=== PATIENT | male | born 1965 | race Caucasian/White ===

== ENCOUNTER 2022-02-12 16:15 | Emergency (ER) | payer MEDICARE, OTHER ==
[~2022-02-12] VITALS: Ht 170.2 cm; Wt 81.8 kg
[2022-02-12] MEDS ORDERED: CLOZ25TA6 PO (17:08)
[2022-02-12] MEDS ORDERED: BENZ0.5T23 PO (17:08)
[2022-02-12] MEDS ORDERED: PERP2TAB20 PO (17:08)
[2022-02-12] MEDS ORDERED: METF500S3 PO (17:08)
[2022-02-12 17:16] LABS: BASO # 0.1 10^3/uL (0.0-0.2); BASO % 0.5 % (0.0-1.0); EOS # 0.3 10^3/uL (0.0-0.5); EOS % 3.2 % (0.0-3.0); HEMATOCRIT 43.4 % (42.0-52.0); HEMOGLOBIN 14.8 g/dl (13.5-17.5); LYMPH # 1.4 10^3/uL (1.5-5.0); LYMPH % 15.3 % (24.0-44.0); MEAN CORPUSCULAR HEMOGLOBIN 32.1 pg (27.0-33.0); MEAN CORPUSCULAR HGB CONC 34.1 g/dl (32.0-36.5); MEAN CORPUSCULAR VOLUME 94.1 fl (80.0-96.0); MONO # 0.7 10^3/uL (0.0-0.8); MONO % 7.8 % (2.0-8.0); NEUTROPHILS # 6.7 10^3/uL (1.5-8.5); NEUTROPHILS % 72.7 % (36.0-66.0); PLATELET COUNT, AUTOMATED 211 10^3/uL (150-450); RED BLOOD COUNT 4.61 10^6/uL (4.30-6.10); WHITE BLOOD COUNT 9.3 10^3/uL (4.0-10.0)
[2022-02-12] MEDS ORDERED: DERMABOND TOPICAL SKIN ADHESIVE TOP ONE (17:20)
[2022-02-12 17:42] LABS: RSV AMPLIFICATION NEGATIVE (NEGATIVE)
[2022-02-12 17:45] LABS: INR 0.93; PROTHROMBIN TIME 12.7 SECONDS (12.5-14.5)
[2022-02-12 17:49] LABS: BLOOD UREA NITROGEN 15 MG/DL (7-18); CALCIUM LEVEL 8.5 MG/DL (8.5-10.1); CARBON DIOXIDE LEVEL 19 MEQ/L (21-32); CHLORIDE LEVEL 106 MEQ/L (98-107); CREATININE FOR GFR 1.13 MG/DL (0.70-1.30); ETHYL ALCOHOL (ETHANOL) 0.245 % (0.000-0.010); GLOMERULAR FILTRATION RATE > 60.0 (>56); GLUCOSE, FASTING 110 MG/DL (70-100); MAGNESIUM LEVEL 1.9 MG/DL (1.8-2.4); POTASSIUM SERUM 3.7 MEQ/L (3.5-5.1); SODIUM LEVEL 139 MEQ/L (136-145)
[2022-02-12] MEDS ORDERED: BACIOIN5 OP (18:14)
[2022-02-12 18:35] VITALS: BP 135/70
== END 2022-02-12 18:35 | disposition home or self-care (01) ==
LOC: M ED 16:15
DX: S61.411A Laceration without foreign body of right hand, initial encounter (principal); S02.612A Fracture of condylar process of left mandible, initial encounter for closed fracture; W01.0XXA Fall on same level from slipping, tripping and stumbling without subsequent striking against object, initial encounter; Y92.410 Unspecified street and highway as the place of occurrence of the external cause; F10.129 Alcohol abuse with intoxication, unspecified; R00.0 Tachycardia, unspecified; M48.02 Spinal stenosis, cervical region; M43.12 Spondylolisthesis, cervical region; M50.222 Other cervical disc displacement at C5-C6 level; J32.4 Chronic pansinusitis; Z79.899 Other long term (current) drug therapy; Z79.84 Long term (current) use of oral hypoglycemic drugs

== ENCOUNTER → 2022-12-11 | Outpatient (CLI) | payer MEDICARE ==
[~2022-12-11] MED LIST: BACIOIN5 OP; BENZ0.5T2 PO; CLOZ25TA6 PO; METF500S3 PO; PERP2TAB20 PO
== END ==
LOC: M OUTALCOH 07:18
PROVIDERS: ATTEND Psychiatry & Neurology Psychiatry
DX: F10.10 Alcohol abuse, uncomplicated (principal)

== ENCOUNTER 2023-02-04 15:00 | Outpatient (RCR) | payer MEDICARE | END 2023-02-09 | LOC: M OUTALCOH 15:00 | PROVIDERS: ATTEND Psychiatry & Neurology Psychiatry | DX: F10.10 Alcohol abuse, uncomplicated (principal) ==

== ENCOUNTER 2023-03-31 14:27 | Outpatient (RCR) | payer MEDICARE | END 2023-04-11 | LOC: M OUTALCOH 14:27 | PROVIDERS: ATTEND Psychiatry & Neurology Psychiatry | DX: F10.10 Alcohol abuse, uncomplicated (principal) ==

== ENCOUNTER → 2024-01-27 | Outpatient (CLI) | payer MEDICARE, OTHER | LOC: M PLAIMG 13:03 | PROVIDERS: ATTEND Nurse Practitioner Family | DX: R26.9 Unspecified abnormalities of gait and mobility (principal) ==